=== PATIENT | male | born 1955 | race Caucasian/White ===

== ENCOUNTER 2018-03-11 03:50 | Inpatient (IN) | payer OTHER ==
[2018-03-11] VITALS (15 sets, daily range): BP systolic 103–137; BP diastolic 61–87
[~2018-03-11] VITALS: Ht 177.8 cm; Wt 82.0 kg
[2018-03-11 05:05] LABS: BASOPHILS % (AUTO) 0.1 % (0-1); EOSINOPHILS # (AUTO) 0.1 X10'3 (0-0.9); HEMATOCRIT 43.3 % (42.0-52.0); HEMOGLOBIN 14.3 g/dl (14.0-17.9); LYMPHOCYTES # (AUTO) 0.3 X10'3 (1.1-4.8); MEAN CORPUSCULAR HEMOGLOBIN 26.8 PG (27.0-31.0); MEAN CORPUSCULAR HGB CONC 32.9 % (33.0-36.5); MEAN CORPUSCULAR VOLUME 81.5 FL (78-98); MEAN PLATELET VOLUME 7.4 FL (7.4-10.4); MONOCYTES # (AUTO) 0.2 X10'3 (0-0.9); MONOCYTES % (AUTO) 2.2 % (2-12); NEUTROPHILS # (AUTO) 10.4 X10'3 (1.8-7.7); NEUTROPHILS % (AUTO) 93.7 % (42-75); PLATELET COUNT 165 X10'3 (140-440); RED BLOOD COUNT 5.31 X10'6 (4.70-6.10); RED CELL DISTRIBUTION WIDTH 14.3 % (11.5-14.5); WHITE BLOOD COUNT 11.1 X10'3 (4.5-11.0)
[2018-03-11 05:15] LABS: CLARITY,URINE CLEAR (Clear); COLOR,URINE YELLOW (Yellow); GLUCOSE, URINE NEGATIVE (Neg); KETONES,URINE NEGATIVE (Neg); LEUKOCYTE ESTERASE ,URINE NEGATIVE (Neg); NITRITES, URINE NEGATIVE (Neg); OCCULT BLOOD,URINE NEGATIVE (Neg); PH,URINE 5.5 (4.8-8.0); PROTEIN,URINE NEGATIVE (Neg); UROBILINOGEN,URINE 0.2 E.U/dL (0.2-1.0)
[2018-03-11 05:22] LABS: UA COLLECTION TYPE URINAL
[2018-03-11] MEDS ORDERED: ondansetron/PF 4mg/2ml inj IV ONE (05:25)
[2018-03-11] MEDS ORDERED: morphine 4 MG/ML inj SYRINge IV ONE (05:25)
[2018-03-11 05:27] LABS: ALANINE AMINOTRANSFERASE 24 U/L (12-78); ALBUMIN 3.8 G/DL (3.4-5.0); ALKALINE PHOSPHATASE 91 IU/L (46-116); ANION GAP 7 (8-16); ASPARTATE AMINO TRANSFERASE 20 U/L (10-37); BILIRUBIN,TOTAL 0.6 MG/DL (0.1-1.0); BLOOD UREA NITROGEN 12 MG/DL (7-18); BUN/CREATININE RATIO 13.8 (5.4-32.0); CHLORIDE 100 MMOL/L (99-107); CREATININE 0.87 MG/DL (0.60-1.10); GLUCOSE 135 MG/DL (70-104); LIPASE 130 U/L (73-393); SODIUM 134 MMOL/L (135-145); TOTAL CARBON DIOXIDE 26.7 MMOL/L (24-32); TOTAL PROTEIN 7.6 G/DL (6.4-8.2); eGFR 90 ML/MIN
[2018-03-11 05:50] LABS: CALCIUM 8.9 MG/DL (8.5-10.1)
[2018-03-11 06:00] LABS: POTASSIUM 4.3 MMOL/L (3.5-5.1)
[2018-03-11] MEDS ORDERED: iohexol 300mg/ml 100ml inj. ONE (06:08)
[2018-03-11] MEDS ORDERED: piperacillin/tazo 3.375gm/50ml 50 ML IV ONE (08:05)
[2018-03-11] MEDS ORDERED: normal saline 1000ml 1,000 ML IV ONE (08:29)
[2018-03-11] MEDS ORDERED: normal saline 1000ML IV soln IVB ONE (08:30)
[2018-03-11] MEDS: normal saline 1000ml 1,000 ML IV SCH ×3 (08:42→23:19)
[2018-03-11] MEDS ORDERED: acetaminophen 325mg tablet PO PRN ×2 (08:45)
[2018-03-11] MEDS ORDERED: potassium Cl 20 mEq SR tablet PO PRN ×2 (08:45)
[2018-03-11] MEDS ORDERED: mag hydrox/Alum hydrox/simeth 30ml oral suspension PO PRN (08:45)
[2018-03-11] MEDS ORDERED: potassium Cl 40MEQ/NS 500ml 500 ML IV PRN ×2 (08:45)
[2018-03-11] MEDS ORDERED: ondansetron/PF 4mg/2ml inj IV PRN ×2 (08:45→10:45)
[2018-03-11] MEDS ORDERED: magnesium Cl slow-release 64mg tablet PO PRN (08:45)
[2018-03-11] MEDS ORDERED: magnesium hydroxide 30ml (MOM) UD suspension PO PRN (08:45)
[2018-03-11] MEDS ORDERED: magnesium 4gm in 100ml NS 100 ML IV PRN (08:45)
[2018-03-11] MEDS ORDERED: morphine 2 MG/ML inj. syringe IV PRN ×2 (08:45)
[2018-03-11 09:48] LABS: INR 1.1 INR; PROTHROMBIN TIME 10.9 SECONDS (9.0-12.0)
[2018-03-11] MEDS ORDERED: morphine 4 MG/ML inj SYRINge IV PRN ×3 (10:12→10:45)
[2018-03-11 10:16] LABS: PARTIAL THROMBOPLASTIN TIME 31 SECONDS (22-32)
[2018-03-11] MEDS: morphine 4 MG/ML inj SYRINge IV PRN ×2 (10:41→20:52)
[2018-03-11] MEDS ORDERED: fentaNYL/PF 50MCG/1 ML 2ML syringe IV PRN (10:45)
[2018-03-11] MEDS ORDERED: labetalol 20mg/4ml (5mg/ml) syringe IV PRN (10:45)
[2018-03-11] MEDS ORDERED: ringers solution, lacted 1,000 ML IV SCH (10:45)
[2018-03-11] MEDS ORDERED: hydrALAZINE 20mg/ml inj. IV PRN (10:45)
[2018-03-11] MEDS ORDERED: midazolam 2 mg/2 ml injection ONE (14:24)
[2018-03-11] MEDS ORDERED: fentaNYL /PF 50mcg/ml 5ml ampule ONE (14:24)
[2018-03-11] MEDS ORDERED: LIDOcaine 2% (20mg/ml) 5ml vial ONE (14:33)
[2018-03-11] MEDS ORDERED: propofol inj 20 ML IV ONE (14:33)
[2018-03-11] MEDS ORDERED: rocuronium 10mg/ml inj IV ONE (14:33)
[2018-03-11] MEDS ORDERED: dexamethasone sod phosphate 4mg/ml inj. ONE (14:33)
[2018-03-11] MEDS ORDERED: ondansetron/PF 4mg/2ml inj ONE (14:36)
[2018-03-11] MEDS ORDERED: sevoflurane 250ml liquid IH ONE (14:45)
[2018-03-11] MEDS ORDERED: sugammadex 200mg/2ml injection IV ONE (14:55)
[2018-03-11] MEDS: fentaNYL/PF 50MCG/1 ML 2ML syringe IV PRN ×2 (15:52→16:13)
[2018-03-11] MEDS ORDERED: SIMV80TA2 PO (17:34)
[2018-03-11] MEDS ORDERED: ALBU8.5H8 INH (17:34)
[2018-03-11] MEDS ORDERED: BUDE10.2 INH (17:34)
[2018-03-11] MEDS ORDERED: IPRA4AER IH (17:34)
[2018-03-11] MEDS: piperacillin/tazo 3.375gm/50ml 50 ML IV SCH ×2 (18:09→20:53)
[2018-03-11] MEDS: HYDROcodone/acetaminophen 10/325mg tab PO PRN (23:20)
[2018-03-12] VITALS: BP 106/63
[2018-03-12] MEDS: piperacillin/tazo 3.375gm/50ml 50 ML IV SCH ×4 (01:45→19:17)
[2018-03-12] MEDS: morphine 4 MG/ML inj SYRINge IV PRN ×5 (01:50→22:05)
[2018-03-12] MEDS: HYDROcodone/acetaminophen 10/325mg tab PO PRN ×4 (05:17→23:20)
[2018-03-12 06:24] LABS: BASOPHILS % (AUTO) 0.3 % (0-1); EOSINOPHILS % (AUTO) 0.4 % (0-6); HEMATOCRIT 36.3 % (42.0-52.0); HEMOGLOBIN 11.8 g/dl (14.0-17.9); LYMPHOCYTES # (AUTO) 0.6 X10'3 (1.1-4.8); LYMPHOCYTES % (AUTO) 7.4 % (21-51); MEAN CORPUSCULAR HEMOGLOBIN 26.9 PG (27.0-31.0); MEAN CORPUSCULAR HGB CONC 32.7 % (33.0-36.5); MEAN CORPUSCULAR VOLUME 82.3 FL (78-98); MEAN PLATELET VOLUME 7.6 FL (7.4-10.4); MONOCYTES # (AUTO) 0.4 X10'3 (0-0.9); NEUTROPHILS # (AUTO) 7.5 X10'3 (1.8-7.7); NEUTROPHILS % (AUTO) 86.9 % (42-75); PLATELET COUNT 154 X10'3 (140-440); RED BLOOD COUNT 4.41 X10'6 (4.70-6.10); WHITE BLOOD COUNT 8.6 X10'3 (4.5-11.0)
[2018-03-12 06:39] LABS: ALBUMIN 2.5 G/DL (3.4-5.0); ANION GAP 5 (8-16); BLOOD UREA NITROGEN 12 MG/DL (7-18); BUN/CREATININE RATIO 13.6 (5.4-32.0); CALCIUM 8.3 MG/DL (8.5-10.1); CHLORIDE 104 MMOL/L (99-107); CREATININE 0.88 MG/DL (0.60-1.10); GLUCOSE 121 MG/DL (70-104); POTASSIUM 4.3 MMOL/L (3.5-5.1); SODIUM 137 MMOL/L (135-145); TOTAL CARBON DIOXIDE 27.6 MMOL/L (24-32); eGFR 88 ML/MIN
[2018-03-12 07:00] VITALS: BP 95/71
[2018-03-12] MEDS: K and/or MAG REPLACEMENT MC SCH (08:00)
[2018-03-12] MEDS ORDERED: FLU VACC QUAD 2018(5 YR UP)/PF 60 MCG/0.5 ML SYRINGE IM ONE (10:00)
[2018-03-12 11:00] VITALS: BP 99/62
[2018-03-12] MEDS: normal saline 1000ml 1,000 ML IV SCH ×2 (11:18→22:05)
[2018-03-12 20:00] VITALS: BP 98/55
[2018-03-13] VITALS: BP 102/67
[2018-03-13] MEDS: piperacillin/tazo 3.375gm/50ml 50 ML IV SCH ×4 (02:07→19:51)
[2018-03-13] MEDS: morphine 4 MG/ML inj SYRINge IV PRN ×5 (02:07→20:40)
[2018-03-13] MEDS: HYDROcodone/acetaminophen 10/325mg tab PO PRN ×5 (03:42→23:48)
[2018-03-13 06:12] LABS: ALBUMIN 2.5 G/DL (3.4-5.0); ANION GAP 8 (8-16); BLOOD UREA NITROGEN 14 MG/DL (7-18); BUN/CREATININE RATIO 15.1 (5.4-32.0); CALCIUM 8.1 MG/DL (8.5-10.1); CHLORIDE 101 MMOL/L (99-107); CREATININE 0.93 MG/DL (0.60-1.10); GLUCOSE 107 MG/DL (70-104); MAGNESIUM 1.8 MG/DL (1.5-2.4); POTASSIUM 3.8 MMOL/L (3.5-5.1); SODIUM 135 MMOL/L (135-145); eGFR 83 ML/MIN
[2018-03-13 06:25] LABS: BASOPHILS % (AUTO) 0.2 % (0-1); EOSINOPHILS # (AUTO) 0.1 X10'3 (0-0.9); EOSINOPHILS % (AUTO) 1.4 % (0-6); HEMOGLOBIN 11.7 g/dl (14.0-17.9); LYMPHOCYTES # (AUTO) 0.6 X10'3 (1.1-4.8); LYMPHOCYTES % (AUTO) 7.3 % (21-51); MEAN CORPUSCULAR HEMOGLOBIN 26.7 PG (27.0-31.0); MEAN CORPUSCULAR HGB CONC 32.5 % (33.0-36.5); MEAN CORPUSCULAR VOLUME 82.3 FL (78-98); MONOCYTES # (AUTO) 0.6 X10'3 (0-0.9); NEUTROPHILS # (AUTO) 6.7 X10'3 (1.8-7.7); NEUTROPHILS % (AUTO) 84.1 % (42-75); PLATELET COUNT 145 X10'3 (140-440); RED BLOOD COUNT 4.37 X10'6 (4.70-6.10); RED CELL DISTRIBUTION WIDTH 13.9 % (11.5-14.5); WHITE BLOOD COUNT 7.9 X10'3 (4.5-11.0)
[2018-03-13 07:05] VITALS: BP 108/69
[2018-03-13] MEDS: K and/or MAG REPLACEMENT MC SCH (08:00)
[2018-03-13] MEDS: normal saline 1000ml 1,000 ML IV SCH (10:42)
[2018-03-13 11:00] VITALS: BP 108/72
[2018-03-13] MEDS: potassium CL 20mEq in D5-1/2NS 1,000 ML IV SCH (16:03)
[2018-03-13] MEDS: methylnaltrexone br 12mg/0.6ml inj***SubQ only SQ SCH (19:10)
[2018-03-13 20:00] VITALS: BP 116/77
[2018-03-14] VITALS: BP 117/84
[2018-03-14] MEDS: potassium CL 20mEq in D5-1/2NS 1,000 ML IV SCH ×4 (00:34→23:28)
[2018-03-14] MEDS: morphine 4 MG/ML inj SYRINge IV PRN ×4 (00:34→17:58)
[2018-03-14] MEDS: piperacillin/tazo 3.375gm/50ml 50 ML IV SCH ×4 (02:23→19:37)
[2018-03-14 05:39] LABS: BASOPHILS % (AUTO) 0.2 % (0-1); EOSINOPHILS # (AUTO) 0.2 X10'3 (0-0.9); EOSINOPHILS % (AUTO) 2.3 % (0-6); HEMATOCRIT 39.6 % (42.0-52.0); HEMOGLOBIN 12.8 g/dl (14.0-17.9); LYMPHOCYTES # (AUTO) 0.9 X10'3 (1.1-4.8); MEAN CORPUSCULAR HEMOGLOBIN 26.7 PG (27.0-31.0); MEAN CORPUSCULAR HGB CONC 32.4 % (33.0-36.5); MEAN CORPUSCULAR VOLUME 82.4 FL (78-98); MEAN PLATELET VOLUME 7.3 FL (7.4-10.4); MONOCYTES # (AUTO) 0.7 X10'3 (0-0.9); MONOCYTES % (AUTO) 8.8 % (2-12); NEUTROPHILS # (AUTO) 5.8 X10'3 (1.8-7.7); NEUTROPHILS % (AUTO) 76.7 % (42-75); PLATELET COUNT 180 X10'3 (140-440); RED CELL DISTRIBUTION WIDTH 14.3 % (11.5-14.5); WHITE BLOOD COUNT 7.6 X10'3 (4.5-11.0)
[2018-03-14 05:51] LABS: ALBUMIN 2.5 G/DL (3.4-5.0); ANION GAP 10 (8-16); BLOOD UREA NITROGEN 8 MG/DL (7-18); BUN/CREATININE RATIO 8.9 (5.4-32.0); CALCIUM 8.3 MG/DL (8.5-10.1); CHLORIDE 99 MMOL/L (99-107); GLUCOSE 126 MG/DL (70-104); MAGNESIUM 1.8 MG/DL (1.5-2.4); POTASSIUM 3.8 MMOL/L (3.5-5.1); SODIUM 132 MMOL/L (135-145); TOTAL CARBON DIOXIDE 23.3 MMOL/L (24-32); eGFR 86 ML/MIN
[2018-03-14] MEDS: HYDROcodone/acetaminophen 10/325mg tab PO PRN ×4 (07:55→20:24)
[2018-03-14] MEDS: K and/or MAG REPLACEMENT MC SCH (08:00)
[2018-03-14 08:06] VITALS: BP 116/75
[2018-03-14 12:54] VITALS: BP 114/62
[2018-03-14 20:00] VITALS: BP 123/74
[2018-03-14 23:30] VITALS: BP 125/77
[2018-03-15] MEDS: piperacillin/tazo 3.375gm/50ml 50 ML IV SCH ×3 (01:49→14:00)
[2018-03-15] MEDS: HYDROcodone/acetaminophen 5mg/325mg tablet PO PRN ×2 (05:01→11:33)
[2018-03-15 06:26] LABS: ALBUMIN 2.3 G/DL (3.4-5.0); ANION GAP 10 (8-16); BLOOD UREA NITROGEN 4 MG/DL (7-18); BUN/CREATININE RATIO 5.3 (5.4-32.0); CALCIUM 8.2 MG/DL (8.5-10.1); CHLORIDE 97 MMOL/L (99-107); CREATININE 0.75 MG/DL (0.60-1.10); GLUCOSE 122 MG/DL (70-104); MAGNESIUM 1.8 MG/DL (1.5-2.4); POTASSIUM 3.6 MMOL/L (3.5-5.1); SODIUM 132 MMOL/L (135-145); eGFR > 90 ML/MIN
[2018-03-15 06:31] LABS: BASOPHILS % (AUTO) 0.3 % (0-1); EOSINOPHILS # (AUTO) 0.1 X10'3 (0-0.9); EOSINOPHILS % (AUTO) 1.6 % (0-6); HEMATOCRIT 35.9 % (42.0-52.0); HEMOGLOBIN 11.6 g/dl (14.0-17.9); LYMPHOCYTES # (AUTO) 0.5 X10'3 (1.1-4.8); LYMPHOCYTES % (AUTO) 8.8 % (21-51); MEAN CORPUSCULAR HEMOGLOBIN 26.3 PG (27.0-31.0); MEAN CORPUSCULAR HGB CONC 32.3 % (33.0-36.5); MEAN CORPUSCULAR VOLUME 81.6 FL (78-98); MEAN PLATELET VOLUME 7.6 FL (7.4-10.4); MONOCYTES # (AUTO) 0.8 X10'3 (0-0.9); MONOCYTES % (AUTO) 12.9 % (2-12); NEUTROPHILS # (AUTO) 4.8 X10'3 (1.8-7.7); NEUTROPHILS % (AUTO) 76.4 % (42-75); PLATELET COUNT 159 X10'3 (140-440); RED CELL DISTRIBUTION WIDTH 14.2 % (11.5-14.5); WHITE BLOOD COUNT 6.2 X10'3 (4.5-11.0)
[2018-03-15 07:30] VITALS: BP 127/82
[2018-03-15] MEDS: K and/or MAG REPLACEMENT MC SCH (08:00)
[2018-03-15] MEDS: methylnaltrexone br 12mg/0.6ml inj***SubQ only SQ SCH (08:03)
[2018-03-15 12:00] VITALS: BP 126/75
[2018-03-15] MEDS ORDERED: AMOX-580 PO (13:54)
[2018-03-15] MEDS ORDERED: HYDR-3972 PO (13:54)
[2018-03-15] MEDS: potassium CL 20mEq in D5-1/2NS 1,000 ML IV SCH (16:15)
== END 2018-03-15 16:20 | disposition home or self-care (01) | DRG 853 ==
LOC: ER 03:51 → ED HOLD 08:42 → SUR 3N 16:22
PROVIDERS: ADMIT Hospitalist; ATTEND Hospitalist
PROC: BW211ZZ Computerized Tomography (CT Scan) of Abdomen and Pelvis using Low Osmolar Contrast (ICD-10-PCS; 2018-03-11)
PROC: 0DCH0ZZ Extirpation of Matter from Cecum, Open Approach (ICD-10-PCS; 2018-03-11)
PROC: 0DQH0ZZ Repair Cecum, Open Approach (ICD-10-PCS; principal; 2018-03-11 14:25)
PROC: 3E02340 Introduction of Influenza Vaccine into Muscle, Percutaneous Approach (ICD-10-PCS; 2018-03-12)
DX: A41.9 Sepsis, unspecified organism (principal); K63.1 Perforation of intestine (nontraumatic); K65.9 Peritonitis, unspecified; E87.1 Hypo-osmolality and hyponatremia; K43.9 Ventral hernia without obstruction or gangrene; K66.8 Other specified disorders of peritoneum; J45.909 Unspecified asthma, uncomplicated; E78.00 Pure hypercholesterolemia, unspecified; E78.5 Hyperlipidemia, unspecified; F17.210 Nicotine dependence, cigarettes, uncomplicated; E86.0 Dehydration; Z23 Encounter for immunization; Z79.51 Long term (current) use of inhaled steroids; Z79.899 Other long term (current) drug therapy
CPT/HCPCS: 36415; 71045; 74018; 74177; 80048; 80053; 81003; 83690; 83735; 85025; 85610; 85730; 86885; 86900; 86901; 87070; 93005; 96374; 96375; 99285; A7000; C1758; C9399; G0378; J1100; J2001; J2250; J2270; J2405; J2543; J2704; J3010; J7030; J7120; Q2037; Q9967